=== PATIENT | male | born 1985 | race Caucasian/White ===

== ENCOUNTER 2021-02-07 23:20 | Emergency (ER) | payer SELFPAY ==
[~2021-02-07] VITALS: Ht 182.8 cm; Wt 81.6 kg
== END 2021-02-08 00:41 | disposition left against medical advice (07) ==
LOC: ED 23:20
DX: T50.901A Poisoning by unspecified drugs, medicaments and biological substances, accidental (unintentional), initial encounter (principal); R40.4 Transient alteration of awareness; F17.200 Nicotine dependence, unspecified, uncomplicated; Y92.89 Other specified places as the place of occurrence of the external cause

== ENCOUNTER 2021-03-12 03:53 | Emergency (ER) | payer SELFPAY ==
[~2021-03-12] VITALS: Ht 177.8 cm; Wt 83.9 kg
== END 2021-03-12 04:14 | disposition left against medical advice (07) ==
LOC: ED 03:53
DX: T50.901A Poisoning by unspecified drugs, medicaments and biological substances, accidental (unintentional), initial encounter (principal); Z53.20 Procedure and treatment not carried out because of patient's decision for unspecified reasons; Y92.89 Other specified places as the place of occurrence of the external cause

== ENCOUNTER 2022-01-28 10:01 | Emergency (ER) | payer SELFPAY ==
[~2022-01-28] VITALS: Ht 182.8 cm; Wt 81.6 kg
== END 2022-01-28 10:40 | disposition left against medical advice (07) ==
LOC: ED 10:01
DX: Z53.21 Procedure and treatment not carried out due to patient leaving prior to being seen by health care provider (principal)

== ENCOUNTER 2022-08-03 14:04 | Emergency (ER) | payer SELFPAY ==
[~2022-08-03] VITALS: Ht 165.1 cm; Wt 63.5 kg
[2022-08-03] MEDS ORDERED: VISTARIL50 MG PO (14:47)
== END 2022-08-03 15:10 | disposition home or self-care (01) ==
LOC: ED 14:04
DX: F41.9 Anxiety disorder, unspecified (principal); G47.00 Insomnia, unspecified

== ENCOUNTER → 2022-09-29 | Outpatient (CLI) | payer MEDICAID ==
[~2022-09-29] MED LIST: VISTARIL50 MG PO
== END | disposition home or self-care (01) ==
LOC: CARD 15:18
PROVIDERS: ATTEND Family Medicine
DX: F41.0 Panic disorder [episodic paroxysmal anxiety] (principal); Z86.79 Personal history of other diseases of the circulatory system

== ENCOUNTER 2023-05-13 17:46 | Emergency (ER) | payer MEDICAID ==
[2023-05-13 18:27] LABS: BASO # 0.1 10*3/uL (0.0-0.1); EOS # 0.2 10*3/uL (0.0-0.4); EOS % 1.8 % (1.0-4.0); HEMATOCRIT 46.1 % (42.0-52.0); LYMPH # 1.7 10*3/uL (1.3-4.4); LYMPH % 15.5 % (27.0-41.0); MEAN CELL VOLUME 85.7 fl (80.0-94.0); MEAN CORPUSCULAR HGB 28.4 pg (27.0-31.0); MEAN CORPUSCULAR HGB CONC 33.2 g/dl (33.0-37.0); MEAN PLATELET VOLUME 9.1 fl (9.6-12.3); MONO # 0.7 10*3/uL (0.1-1.0); MONO % 6.4 % (3.0-9.0); NEUT # 8.4 10*3/uL (2.3-7.9); NEUT % 75.1 % (47.0-73.0); PLATELET COUNT AUTOMATED 253 10*3/uL (130-400); RED BLOOD COUNT 5.38 10*6/uL (4.50-5.90); RED CELL DISTRI WIDTH 13.4 % (0-14.5); WHITE BLOOD COUNT 11.2 10*3/uL (4.8-10.8)
[2023-05-13 18:52] LABS: ALKALINE PHOSPHATASE 114 U/L (46-116); BUN 12 mg/dl (9-23); CHLORIDE 108 mmol/L (98-107); CPK 80 U/L (34-171); POTASSIUM 3.7 mmol/L (3.4-5.1); SGPT/ALT 13 U/L (5-49); TOTAL PROTEIN 6.9 gm/dL (6.0-8.0)
[2023-05-13 18:53] LABS: ETHYL ALCOHOL < 3.0 mg/dl (<3)
[2023-05-13 20:55] LABS: BILIRUBIN Negative (Negative); BLOOD Negative (Negative); CLARITY Clear (Clear); COLOR Yellow (Yellow); GLUCOSE Negative (Negative); KETONE 1+ (Negative); LEUKO ESTERASE Negative (Negative); NITRITE Negative (Negative); SPECIFIC GRAVITY 1.025 (1.001-1.030)
[2023-05-13 21:01] LABS: URINE AMPHETAMINES Positive (1000ng/ml); URINE BARBITURATES Negative (200ng/ml); URINE BENZODIAZEPINES Positive (200ng/ml); URINE CANNABINOIDS (THC) Negative (50ng/ml); URINE COCAINE Negative (300ng/ml); URINE METHADONE Negative (300ng/ml); URINE OPIATES Negative (300ng/ml); URINE PHENCYCLIDINE Negative (25ng/ml)
[2023-05-13 21:07] LABS: BACTERIA 1+; MUCOUS 3+; RBC 0-2 rbc/hpf (0-2)
== END 2023-05-13 21:34 | disposition home or self-care (01) ==
LOC: ED 17:46
PROVIDERS: Emergency Medicine
DX: F15.10 Other stimulant abuse, uncomplicated (principal)

== ENCOUNTER → 2023-09-05 | Outpatient (CLI) | payer MEDICAID ==
[2023-09-06 19:06] LABS: BARBITURATE, URINE Negative ng/mL (Cutoff=200); CANNABINOID, URINE Negative ng/mL (Cutoff=20); CREATININE, UR 161.6 mg/dL (20.0-300.0); PH URINE 6.2 (4.5-8.9)
[2023-09-10 10:06] LABS: ALPRAZOLAM CONFIRM 2369 ng/mL (Cutoff=100); AMPHETAMINE (GC/MS), URINE >3000 ng/mL (Cutoff=500); BENZOYLECGONINE (GC/MS) 598 ng/mL (Cutoff=150); FLURAZEPAM Negative (Cutoff=100)
== END | disposition home or self-care (01) ==
LOC: LAB 07:57
PROVIDERS: ATTEND Family Medicine
DX: F41.0 Panic disorder [episodic paroxysmal anxiety] (principal); F41.9 Anxiety disorder, unspecified

== ENCOUNTER 2023-09-17 11:51 | Emergency (ER) | payer MEDICAID ==
[~2023-09-17] VITALS: Ht 172.7 cm; Wt 86.6 kg
== END 2023-09-17 12:36 ==
LOC: ED 11:51
DX: Z04.6 Encounter for general psychiatric examination, requested by authority (principal); Z87.891 Personal history of nicotine dependence

== ENCOUNTER → 2023-12-13 | Emergency (ER) | payer MEDICAID ==
[2023-12-13 13:07] LABS: BASO # 0.1 10*3/uL (0.0-0.1); BASO % 0.9 % (0.0-1.0); EOS # 0.2 10*3/uL (0.0-0.4); EOS % 1.4 % (1.0-4.0); HEMATOCRIT 41.3 % (42.0-52.0); LYMPH # 1.6 10*3/uL (1.3-4.4); LYMPH % 14.9 % (27.0-41.0); MEAN CELL VOLUME 84.6 fl (80.0-94.0); MEAN CORPUSCULAR HGB 28.1 pg (27.0-31.0); MEAN CORPUSCULAR HGB CONC 33.2 g/dl (33.0-37.0); MEAN PLATELET VOLUME 9.2 fl (9.6-12.3); MONO # 0.8 10*3/uL (0.1-1.0); MONO % 7.4 % (3.0-9.0); NEUT # 8.3 10*3/uL (2.3-7.9); PLATELET COUNT AUTOMATED 201 10*3/uL (130-400); RED BLOOD COUNT 4.88 10*6/uL (4.50-5.90); RED CELL DISTRI WIDTH 13.1 % (0-14.5)
[2023-12-13 13:24] LABS: ACT PARTIAL THROMBO TIME 30.2 SECONDS (20.0-32.1)
[2023-12-13 13:29] LABS: ALKALINE PHOSPHATASE 98 U/L (46-116); BUN 15 mg/dl (9-23); CHLORIDE 110 mmol/L (98-107); ETHYL ALCOHOL < 3.0 mg/dl (<3); POTASSIUM 3.8 mmol/L (3.4-5.1); SGPT/ALT 14 U/L (5-49); TOTAL PROTEIN 6.6 gm/dL (6.0-8.0)
== END ==
LOC: ED 12:09
PROVIDERS: Emergency Medicine
DX: S00.03XA Contusion of scalp, initial encounter (principal); M54.2 Cervicalgia; F19.90 Other psychoactive substance use, unspecified, uncomplicated; F41.9 Anxiety disorder, unspecified; F15.10 Other stimulant abuse, uncomplicated; W17.89XA Other fall from one level to another, initial encounter; Y93.89 Activity, other specified; Y92.89 Other specified places as the place of occurrence of the external cause; Y99.8 Other external cause status

== ENCOUNTER 2024-01-02 20:25 | Emergency (ER) | payer MEDICAID ==
[~2024-01-02] VITALS: Ht 182.8 cm; Wt 84.8 kg
[2024-01-02] MEDS ORDERED: ALPRAZOLAM2 MG PO (20:39)
[2024-01-02] MEDS ORDERED: ADDERALL 30 MG30 MG PO (20:40)
[2024-01-02] MEDS ORDERED: PERCOCET 10-321 EACH PO (20:40)
[2024-01-02] MEDS ORDERED: MIRTAZAPINE45 MG PO (20:40)
[2024-01-02] MEDS ORDERED: VENT7GM INH (20:42)
[2024-01-02 23:47] LABS: URINE AMPHETAMINES Positive (1000ng/ml); URINE BARBITURATES Negative (200ng/ml); URINE BENZODIAZEPINES Positive (200ng/ml); URINE CANNABINOIDS (THC) Negative (50ng/ml); URINE COCAINE Positive (300ng/ml); URINE METHADONE Negative (300ng/ml); URINE OPIATES Negative (300ng/ml); URINE PHENCYCLIDINE Negative (25ng/ml)
== END 2024-01-03 00:40 | disposition home or self-care (01) ==
LOC: ED 20:25
PROVIDERS: Internal Medicine
DX: R41.82 Altered mental status, unspecified (principal); F19.90 Other psychoactive substance use, unspecified, uncomplicated; Z79.899 Other long term (current) drug therapy

== ENCOUNTER 2024-01-07 18:13 | Emergency (ER) | payer MEDICAID ==
[~2024-01-07 18:13] MED LIST changes: +ADDERALL 30 MG30 MG PO; +ALPRAZOLAM2 MG PO; +MIRTAZAPINE45 MG PO; +PERCOCET 10-321 EACH PO; +VENT7GM INH
== END 2024-01-07 18:25 | disposition home or self-care (01) ==
LOC: ED 18:13
DX: T40.601A Poisoning by unspecified narcotics, accidental (unintentional), initial encounter (principal); J45.909 Unspecified asthma, uncomplicated; F90.9 Attention-deficit hyperactivity disorder, unspecified type; Y92.89 Other specified places as the place of occurrence of the external cause